=== PATIENT | male | born 1995 ===

== ENCOUNTER 2019-08-25 15:48 | Emergency (ER) | payer OTHER ==
--- NOTE | 2019-08-25 16:51 | RAD REPORT ---
EXAM DESCRIPTION: RAD - Wrist Left 3 View - 08/25/2019 4:41 pm CLINICAL HISTORY: ihjury, fall, wrist pain COMPARISON: No comparisons FINDINGS: There is a transverse fracture through the metaphyseal portion of the distal left radius. No significant distraction or angulation deformity. No ulna styloid fractures seen. Slight widening o f the scapholunate joint space is not outside of normal range. There is slight dorsal rotation of the lunate bone but no lunate dislocation. A small bone avulsion from the radial side margin of the scap hoid bone is present at the scaphoid trapezium articulation. No foreign body. Soft tissue swelling i s present around the wrist joint. IMPRESSION: Distal left radius fracture is present without significant distraction or angulation com ponent. Small crescent shaped bone avulsion from the scaphoid bone at the scaphoid trapezium articulation.
[2019-08-25] MEDS ORDERED: KETOROLAC 30 MG/ML INJ ONE (17:04)
--- NOTE | 2019-08-25 17:35 | EDPHYS ---
Physician Documentation [facility] Name: Charli Ray Age: 24 yrs Sex: Male : 1995 Arrival Date: 08/25/2019 Time: 15:52 Bed 18 Private MD: ED Physician Jose Petty HPI: 08/24 16:29 This 24 yrs old Male presents to ER via EMS with complaints of Wrist Injury. mh7 16:29 The patient or guardian reports injury. The complaints affect the left wrist diffusely. mh7 Context: [place] resulted from [place] fall, while running, playing sports, soccer. Onset: The symptoms/episode began/occurred just prior to arrival, today. Modifying factors: The symptoms are alleviated by holding still, the symptoms are aggravated by movement. Associated signs and symptoms: Pertinent negatives: cyanosis distally, decreased sensation distally, fever, nausea, numbness distally, tingling distally, vomiting. Compartment Syndrome negative for numbness, tingling. Historical: - Allergies: 15:57 No Known Allergies; - Home Meds: 15:57 Prozac Oral [Active]; Trileptal oral oral [Active]; - PMHx: 15:57 Depression; mood disorder; [facility] PSHx: 15:57 None; - Immunization history:: Adult Immunizations up to date, Last tetanus immunization: up to date. - Social history:: Smoking status: Patient reports the use of cigarette tobacco products, smokes one pack cigarettes per day. Patient/guardian denies using alcohol, street drugs. ROS: 16:29 Constitutional: Negative for fever, chills, and weight loss, Eyes: Negative for injury, mh7 pain, redness, and discharge, ENT: Negative for injury, pain, and discharge, Neck: Negative for injury, pain, and swelling, Cardiovascular: Negative for chest pain, palpitations, and edema, Respiratory: Negative for shortness of breath, cough, wheezing, and pleuritic chest pain, Abdomen/GI: Negative for abdominal pain, nausea, vomiting, diarrhea, and constipation, Back: Negative for injury and pain, : Negative for injury, bleeding, discharge, and swelling, Skin: Negative for injury, rash, and discoloration, Neuro: Negative for headache, weakness, numbness, tingling, and seizure, Psych: Negative for depression, anxiety, suicide ideation, homicidal ideation, and hallucinations, Allergy/Immunology: Negative for hives, rash, and allergies, Endocrine: Negative for neck swelling, polydipsia, polyuria, polyphagia, and marked weight changes, Hematologic/Lymphatic: Negative for swollen nodes, abnormal bleeding, and unusual bruising. Exam: 16:29 Constitutional: This is a well developed, well nourished patient who is awake, alert, mh7 and in no acute distress. Head/Face: Normocephalic, atraumatic. Neck: Trachea midline, no thyromegaly or masses palpated, and no cervical lymphadenopathy. Supple, full range of motion without nuchal rigidity, or vertebral point tenderness. No Meningismus. Chest/axilla: Normal chest wall appearance and motion. Nontender with no deformity. No lesions are appreciated. Cardiovascular: Regular rate and rhythm with a normal S1 and S2. No gallops, murmurs, or rubs. Normal PMI, no JVD. No pulse deficits. Respiratory: Lungs have equal breath sounds bilaterally, clear to auscultation and percussion. No rales, rhonchi or wheezes noted. No increased work of breathing, no retractions or nasal flaring. Abdomen/GI: Soft, non-tender, with normal bowel sounds. No distension or tympany. No guarding or rebound. No evidence of tenderness throughout. Back: No spinal tenderness. No costovertebral tenderness. Full range of motion. Skin: Warm, dry with normal turgor. Normal color with no rashes, no lesions, and no evidence of cellulitis. 16:29 Musculoskeletal/extremity: Extremities: noted in the left wrist: pain, swelling, tenderness. 16:38 Neuro: Awake and alert, GCS 15, oriented to person, place, time, and situation. mh7 Cranial nerves II-XII grossly intact. Motor strength 5/5 in all extremities. Sensory grossly intact. Cerebellar exam normal. Normal gait. Psych: Awake, alert, with orientation to person, place and time. Behavior, mood, and affect are within normal limits. 16:38 Musculoskeletal/extremity: ROM: limited active range of motion due to pain, in the left wrist, limited passive range of motion due to pain, in the left wrist, Circulation is intact in all extremities. Pulses: are normal with no appreciated deficits, Perfusion: the patient is normally perfused throughout, Perfusion: the extremity is normally perfused throughout, Sensation intact. Compartment Syndrome exam of affected extremity: is normal. no numbness, no tingling, no sensation deficit, no palor, no weak pulses, Joints: the left wrist displays Vital Signs: 15:45 BP 132 / 64; Pulse 92; Resp 20; Temp 98.3; Pulse Ox 100% ; Weight 71.67 kg; Height 5 ah ft. 10 in. (177.80 cm); Pain 10/10; 16:30 BP 113 / 61; Pulse 94; Resp 18; Pulse Ox 99% ; ah 17:15 BP 126 / 50; Pulse 86; Resp 18; Pulse Ox 98% ; ah 15:45 Body Mass Index 22.67 (71.67 kg, 177.80 cm) Procedures: 17:49 Splinting: Splint applied to left arm and left wrist using Orthoglass splint, applied mh7 by tech. Examined by me, post splint application: neurovascular intact, 2+ distal pulses palpable, brisk capillary refill noted, Patient tolerated well. MDM: 16:16 Patient medically screened. 7 17:21 Differential diagnosis: dislocation, closed fracture, contusion, abrasion. Data 7 reviewed: vital signs, nurses notes, radiologic studies, plain films. Data interpreted: Pulse oximetry: on room air is 100 %. Interpretation: normal. Counseling: I had a detailed discussion with the patient and/or guardian regarding: the historical points, exam findings, and any diagnostic results supporting the discharge/admit diagnosis, radiology results, the need for outpatient follow up, for definitive care, a orthopedic surgeon, to return to the emergency department if symptoms worsen or persist or if there are any questions or concerns that arise at home. 17:49 Medication response: Toradol markedly relieved the patient's pain. Response to mh7 treatment: the patient's symptoms have markedly improved after treatment. 08/24 16:17 Order name: Wrist Left (3 View) XRAY; Complete Time: 17:03 7 08/24 17:09 Order name: Splint - Sugar Tong - Forearm; Complete Time: 17:41 7 08/24 17:09 Order name: Splint - Thumb Spica; Complete Time: 17:41 mh7 Administered Medications: 17:01 Drug: TORadol 60 mg Route: IM; Site: left ventrogluteal; Disposition: 08/25/19 17:34 Discharged to Home. Impression: Fracture at wrist and hand level - Left distal radius fracture, Fracture of navicular [scaphoid] bone of wrist. - Condition is Stable. - Discharge Instructions: Scaphoid Fracture, Wrist Fracture Treated With Immobilization, [id number]. - Prescriptions for Ibuprofen 800 mg Oral Tablet - take 1 tablet by ORAL route every 8 hours As needed take with food; 15 tablet. Tylenol- Codeine #3 300-30 mg Oral Tablet - take 2 tablets by ORAL route every 6 hours As needed; 20 tablet. - Medication Reconciliation Form, Thank You Letter, Antibiotic Education, Prescription Opioid Use form. - Follow up: Kwaku Matthews MD; When: 1 - 2 days; Reason: Worsening of condition, Continuance of care. - Problem is new. - Symptoms have improved. Signatures: Dispatcher [employer] EDMS Britta Baker RN RN hb Harris, Amy, RN RN ah Holmes, Maurice, MD MD mh7 Corrections: (The following items were deleted from the chart) 18:08 17:34 08/25/2019 17:34 Discharged to Home. Impression: Fracture at wrist and hand level hb - Left distal radius fracture; Fracture of navicular [scaphoid] bone of wrist. Condition is Stable. Forms are Medication Reconciliation Form, Thank You Letter, Antibiotic Education, Prescription Opioid Use. Follow up: Dr. Kwaku Matthews; When: 1 - 2 days; Reason: Worsening of condition, Continuance of care. Problem is new. Symptoms have improved. mh7
--- NOTE | 2019-08-25 17:35 | ER ---
Nurse's Notes [facility] Name: Charli Ray Age: 24 yrs Sex: Male : 1995 Arrival Date: 08/25/2019 Time: 15:52 Bed 18 Private MD: Diagnosis: Fracture at wrist and hand level-Left distal radius fracture;Fracture of navicular [scaphoid] bone of wrist Presentation: 08/24 15:45 Chief complaint: Patient states: fell on the beach and landed on left wrist. Coronavirus screen: Proceed with normal triage. Patient denies a cough. Patient denies shortness of breath or difficulty breathing. Patient denies measured and/or subjective temperature greater than 100.4F prior to today's visit. Patient denies travel on a cruise ship or to a country the [facility] currently lists as an affected area. Patient denies contact with known and/or suspected case of COVID-19. Ebola Screen: No symptoms or risks identified at this time. Initial Sepsis Screen: Does the patient meet any 2 criteria? No. Patient's initial sepsis screen is negative. Does the patient have a suspected source of infection? No. Patient's initial sepsis screen is negative. Risk Assessment: Do you want to hurt yourself or someone else? Patient reports no desire to harm self or others. Onset of symptoms was August 25, 2019. 15:45 Method Of Arrival: EMS: [facility] 15:45 Acuity: RUTH 3 Historical: - Allergies: 15:57 No Known Allergies; - Home Meds: 15:57 Prozac Oral [Active]; Trileptal oral oral [Active]; - PMHx: 15:57 Depression; mood disorder; - PSHx: 15:57 None; - Immunization history:: Adult Immunizations up to date, Last tetanus immunization: up to date. - Social history:: Smoking status: Patient reports the use of cigarette tobacco products, smokes one pack cigarettes per day. Patient/guardian denies using alcohol, street drugs. Screenin:01 Abuse screen: Denies threats or abuse. Nutritional screening: No deficits noted. Tuberculosis screening: No symptoms or risk factors identified. Fall Risk None identified. Assessment: 15:57 General: Appears uncomfortable, Behavior is calm, cooperative, appropriate for age. Pain: Complains of pain in left wrist Pain radiates to left arm Pain currently is 10 out of 10 on a pain scale. Quality of pain is described as aching, Pain began 1 hour ago. Is continuous. 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 Cardiovascular: Capillary refill < 3 seconds Patient's skin is warm and dry. Respiratory: Airway is patent Respiratory effort is even, unlabored, Respiratory pattern is regular, symmetrical. GI: No signs and/or symptoms were reported involving the gastrointestinal system. : No signs and/or symptoms were reported regarding the genitourinary system. EENT: No signs and/or symptoms were reported regarding the EENT system. Derm: No signs and/or symptoms reported regarding the dermatologic system. Musculoskeletal: Circulation, motion, and sensation intact. Capillary refill < 3 seconds, Range of motion: limited in left wrist Bony deformity noted of left wrist Swelling present in left wrist Tenderness present in left wrist. 17:00 Reassessment: Injection given to pt for pain. Tolerated well. No other needs voiced at this time. Vital Signs: 15:45 BP 132 / 64; Pulse 92; Resp 20; Temp 98.3; Pulse Ox 100% ; Weight 71.67 kg; Height 5 ah ft. 10 in. (177.80 cm); Pain 10/10; 16:30 BP 113 / 61; Pulse 94; Resp 18; Pulse Ox 99% ; ah 17:15 BP 126 / 50; Pulse 86; Resp 18; Pulse Ox 98% ; ah 15:45 Body Mass Index 22.67 (71.67 kg, 177.80 cm) ED Course: 15:52 Patient arrived in ED. 15:53 Rut Rios, RN is Primary Nurse. 15:55 Triage completed. 15:57 Jsoe Petty MD is Attending Physician. [facility] 16:02 Arm band placed on right wrist. 16:02 Patient has correct armband on for positive identification. Placed in gown. Bed in low ah position. Call light in reach. Side rails up X 1. 16:42 Wrist Left (3 View) XRAY In Process Unspecified. EDRI 17:27 Kwaku Matthews MD is Referral Physician. [facility] 17:30 No provider procedures requiring assistance completed. Patient did not have IV access ah during this emergency room visit. 17:39 Orthoglass splint: Sugar tong splint applied on left arm. Thumb spica splint applied on dh3 left forearm. capillary refill <3 seconds. Assisted by Rajinder DUMONT. Viewed by Dr. Petty. Administered Medications: 17:01 Drug: TORadol 60 mg Route: IM; Site: left ventrogluteal; Outcome: 17:34 Discharge ordered by MD. lomax 18:00 Discharged to home ambulatory. 18:00 Condition: good 18:00 Discharge instructions given to patient, Instructed on discharge instructions, follow up and referral plans. medication usage, Demonstrated understanding of instructions, follow-up care, splint care, Prescriptions given X 2. 18:08 Patient left the ED. Signatures: Dispatcher [employer] EDMS Britta Baker, RN RN [facility] Rut Rios RN RN Jose Durand MD MD 7
[2019-08-25 18:32] VITALS: BP 126/50; O2SAT 98
== END 2019-08-25 18:08 | disposition home or self-care (01) ==
LOC: ER 15:48
PROC: 2W3DX1Z Immobilization of Left Lower Arm using Splint (ICD-10-PCS; principal; 2019-08-25)
DX: S52.502A Unspecified fracture of the lower end of left radius, initial encounter for closed fracture (principal); S62.002A Unspecified fracture of navicular [scaphoid] bone of left wrist, initial encounter for closed fracture; W01.0XXA Fall on same level from slipping, tripping and stumbling without subsequent striking against object, initial encounter; Y93.66 Activity, soccer; Y92.832 Beach as the place of occurrence of the external cause; Y99.8 Other external cause status; F17.210 Nicotine dependence, cigarettes, uncomplicated
CPT/HCPCS: 96372; 99284